=== PATIENT | female | born 1980 | race Two or more races ===

== ENCOUNTER 2018-02-14 02:23 | Emergency (ER) | payer OTHER ==
[~2018-02-14] VITALS: Ht 160 cm; Wt 99.8 kg
[~2018-02-14 02:23] MED LIST: HYDR-569 PO; LOPE1TAB46 PO; ONDA4TAB6 PO
[2018-02-14] MEDS ORDERED: GUAI120L55 PO (02:57)
[2018-02-14] MEDS ORDERED: AZIT-63 PO (02:57)
[2018-02-14] MEDS ORDERED: guaiFENesin/codeine phos 10ml UD oral syrup PO ONE (03:20)
[2018-02-14 03:24] VITALS: BP 138/101
== END 2018-02-14 03:27 | disposition home or self-care (01) ==
LOC: ER 02:23
DX: J02.9 Acute pharyngitis, unspecified (principal); M54.2 Cervicalgia; G43.909 Migraine, unspecified, not intractable, without status migrainosus; K21.9 Gastro-esophageal reflux disease without esophagitis; Z79.899 Other long term (current) drug therapy
CPT/HCPCS: 99283

== ENCOUNTER 2018-12-05 15:32 | Emergency (ER) | payer OTHER ==
[~2018-12-05 15:32] MED LIST changes: +GUAI120L55 PO; +HYDR-4383 PO; -HYDR-569 PO
--- NOTE | 2018-12-05 16:46 | NUR ---
PT CALLED X3 TO TRIAGE, NIL, FARM TECHNICIAN NOTIFIED
[2018-12-06] MEDS ORDERED: HYDR-4353 PO (10:23)
[2018-12-06] MEDS ORDERED: ONDA8TAB6 PO (10:23)
== END 2018-12-05 17:55 | disposition left against medical advice (07) ==
LOC: ER 15:32
DX: R42 Dizziness and giddiness (principal); Z53.21 Procedure and treatment not carried out due to patient leaving prior to being seen by health care provider; Z79.899 Other long term (current) drug therapy

== ENCOUNTER 2018-12-06 06:10 | Emergency (ER) | payer BC, OTHER ==
[~2018-12-06] VITALS: Ht 160 cm; Wt 93.2 kg
[2018-12-06] MEDS ORDERED: acetaminophen 325mg tablet PO STA (06:42)
[2018-12-06] MEDS ORDERED: ondansetron/PF 4mg/2ml inj IV ONE ×2 (06:45→09:15)
[2018-12-06] MEDS ORDERED: morphine 4 MG/ML inj SYRINge IV PRN (06:45)
[2018-12-06] MEDS ORDERED: ketorolac trometh. 30mg/ml inj. IV ONE (06:45)
[2018-12-06] MEDS ORDERED: normal saline 1000ML IV soln IV ONE (06:45)
[2018-12-06] MEDS ORDERED: CefTRIAXone 2gm/D5W 50ml 50 ML IV ONE (06:45)
[2018-12-06 07:15] LABS: BASOPHILS % (AUTO) 0.2 % (0-1); EOSINOPHILS % (AUTO) 0 % (0-6); HEMATOCRIT 40.9 % (35.0-45.0); HEMOGLOBIN 12.9 g/dl (12.0-16.0); LYMPHOCYTES # (AUTO) 1.5 X10'3 (1.1-4.8); LYMPHOCYTES % (AUTO) 12.6 % (21-51); MEAN CORPUSCULAR HEMOGLOBIN 23.6 PG (27.0-31.0); MEAN CORPUSCULAR HGB CONC 31.4 g/dL (33.0-36.5); MEAN PLATELET VOLUME 8.8 FL (7.4-10.4); MONOCYTES # (AUTO) 1.3 X10'3 (0-0.9); NEUTROPHILS # (AUTO) 9.1 X10'3 (1.8-7.7); NEUTROPHILS % (AUTO) 76.2 % (42-75); PLATELET COUNT 282 X10'3 (140-440); RED BLOOD COUNT 5.45 X10'6 (4.20-5.60); RED CELL DISTRIBUTION WIDTH 13.8 % (11.5-14.5)
[2018-12-06 07:31] LABS: ALANINE AMINOTRANSFERASE 32 U/L (12-78); ALBUMIN 3.2 G/DL (3.4-5.0); ALBUMIN/GLOBULIN RATIO 0.6 (1.1-1.5); ALKALINE PHOSPHATASE 56 IU/L (46-116); ANION GAP 13 (8-16); ASPARTATE AMINO TRANSFERASE 19 U/L (10-37); BILIRUBIN,TOTAL 0.4 MG/DL (0.1-1.0); BLOOD UREA NITROGEN 7 MG/DL (7-18); BUN/CREATININE RATIO 9.6 (6.6-38.0); CALCIUM 8.9 MG/DL (8.5-10.1); CHLORIDE 97 MMOL/L (99-107); CREATININE 0.73 MG/DL (0.40-0.90); GLUCOSE 126 MG/DL (70-104); MAGNESIUM 1.7 MG/DL (1.5-2.4); POTASSIUM 3.2 MMOL/L (3.5-5.1); SODIUM 134 MMOL/L (135-145); TOTAL CARBON DIOXIDE 23.6 MMOL/L (24-32); TOTAL PROTEIN 8.4 G/DL (6.4-8.2); eGFR 89 ML/MIN
[2018-12-06 09:24] LABS: URINE HCG NEGATIVE (NEG)
[2018-12-06 09:32] LABS: COLOR,URINE YELLOW (Yellow); GLUCOSE, URINE NEGATIVE (Neg); KETONES,URINE 40 mg/dl (Neg); LEUKOCYTE ESTERASE ,URINE NEGATIVE (Neg); NITRITES, URINE NEGATIVE (Neg); OCCULT BLOOD,URINE SMALL (Neg); PH,URINE 6.5 (4.8-8.0); PROTEIN,URINE 30 mg/dl (Neg); UROBILINOGEN,URINE 0.2 E.U/dL (0.2-1.0)
[2018-12-06 09:34] LABS: UA COLLECTION TYPE CLN CATCH MIDSTREAM
[2018-12-06 09:37] LABS: CLARITY,URINE SLIGHTLY CLOUDY (Clear)
[2018-12-06 09:38] LABS: BACTERIA,URINE 2+ /HPF (Neg); MUCUS STRANDS MODERATE /LPF (Neg); SQUAMOUS EPITHELIAL CELL,UR MANY /LPF (FEW); WBC,URINE 0-4 /HPF (0-4)
[2018-12-06] MEDS ORDERED: HYDROcodone/acetaminophen 10/325mg tab PO ONE (10:15)
[2018-12-06] MEDS ORDERED: HYDR-4353 PO (10:23)
[2018-12-06] MEDS ORDERED: ONDA8TAB6 PO (10:23)
[2018-12-06 10:25] VITALS: BP 111/59
== END 2018-12-06 10:29 | disposition home or self-care (01) ==
LOC: ER 06:11
DX: B34.9 Viral infection, unspecified (principal); K21.9 Gastro-esophageal reflux disease without esophagitis; Z79.899 Other long term (current) drug therapy
CPT/HCPCS: 36415; 70450; 71045; 80053; 81001; 81025; 83605; 83735; 84145; 85025; 87040; 87077; 87186; 87502; 87503; 96365; 96366; 96375; 96376; 99284; J0696; J1885; J2270; J2405; 93005

== ENCOUNTER 2021-10-10 10:47 | Emergency (ER) | payer BC ==
[~2021-10-10] VITALS: Ht 157.5 cm; Wt 94.1 kg
[~2021-10-10 10:47] MED LIST changes: +ONDA8TAB6 PO
[2021-10-10 10:51] VITALS: BP 164/115
[2021-10-10 11:23] LABS: BASOPHILS # (AUTO) 0.1 X10'3 (0-0.2); BASOPHILS % (AUTO) 0.9 % (0-1); EOSINOPHILS # (AUTO) 0.1 X10'3 (0-0.9); EOSINOPHILS % (AUTO) 1.6 % (0-6); HEMATOCRIT 39.8 % (35.0-45.0); HEMOGLOBIN 12.8 g/dl (12.0-16.0); LYMPHOCYTES # (AUTO) 2.6 X10'3 (1.1-4.8); LYMPHOCYTES % (AUTO) 36.3 % (21-51); MEAN CORPUSCULAR HEMOGLOBIN 23.9 PG (27.0-31.0); MEAN CORPUSCULAR HGB CONC 32.2 g/dL (33.0-36.5); MEAN CORPUSCULAR VOLUME 74.3 FL (78-98); MEAN PLATELET VOLUME 8.6 FL (7.4-10.4); MONOCYTES # (AUTO) 0.5 X10'3 (0-0.9); MONOCYTES % (AUTO) 6.6 % (2-12); NEUTROPHILS % (AUTO) 54.6 % (42-75); PLATELET COUNT 343 X10'3 (140-440); RED BLOOD COUNT 5.36 X10'6 (4.20-5.60); RED CELL DISTRIBUTION WIDTH 14.3 % (11.5-14.5); WHITE BLOOD COUNT 7.3 X10'3 (4.5-11.0)
[2021-10-10 11:38] LABS: ALANINE AMINOTRANSFERASE 26 U/L (12-78); ALBUMIN 3.4 G/DL (3.4-5.0); ALBUMIN/GLOBULIN RATIO 0.7 (1.1-1.5); ALKALINE PHOSPHATASE 79 IU/L (46-116); ANION GAP 9 (8-16); ASPARTATE AMINO TRANSFERASE 15 U/L (10-37); BILIRUBIN,TOTAL 0.3 MG/DL (0.1-1.0); BLOOD UREA NITROGEN 8 MG/DL (7-18); BUN/CREATININE RATIO 14.8 (6.6-38.0); CALCIUM 8.6 MG/DL (8.5-10.1); CHLORIDE 104 MMOL/L (99-107); CREATININE 0.54 MG/DL (0.40-0.90); GLUCOSE 91 MG/DL (70-104); POTASSIUM 3.7 MMOL/L (3.5-5.1); SODIUM 142 MMOL/L (135-145); TOTAL CARBON DIOXIDE 28.8 MMOL/L (24-32); eGFR > 90 ML/MIN
--- NOTE | 2021-10-10 12:00 | NUR ---
pt says has increace in pain with movement
[2021-10-10] MEDS ORDERED: SUCR1ORA12 PO (12:02)
[2021-10-10] MEDS ORDERED: LIDOcaine Viscous 15ml cup MM ONE (12:10)
[2021-10-10] MEDS ORDERED: sucralfate 1gm/10ml UD suspension PO STA (12:10)
[2021-10-10] MEDS ORDERED: mag hydrox/Alum hydrox/simeth 30ml oral suspension PO ONE (12:10)
[2021-10-10] MEDS ORDERED: sucralfate 1 gm tablet PO STA (12:16)
[2021-10-10] MEDS ORDERED: ketorolac trometh. 30mg/ml inj. IM ONE (13:55)
== END 2021-10-10 14:16 | disposition home or self-care (01) ==
LOC: ER 10:47
DX: R07.89 Other chest pain (principal); R07.2 Precordial pain; G43.909 Migraine, unspecified, not intractable, without status migrainosus; K21.9 Gastro-esophageal reflux disease without esophagitis; Z79.899 Other long term (current) drug therapy
CPT/HCPCS: 36415; 71045; 80053; 84484; 85025; 85610; 93005; 96372; 99285; J1885

== ENCOUNTER 2023-12-31 04:53 | Emergency (ER) | payer BC ==
[~2023-12-31] VITALS: Ht 160 cm; Wt 96.4 kg
[~2023-12-31 04:53] MED LIST changes: +SUCR1ORA12 PO
[2023-12-31] MEDS: ondansetron 4mg rapidly disintigrating tab PO ONE (05:35)
[2023-12-31] MEDS: HYDROcodone/acetaminophen 10/325mg tab PO ONE (05:35)
[2023-12-31] MEDS: predniSONE 20 mg tablet PO ONE (05:51)
[2023-12-31 05:52] LABS: BASOPHILS % (AUTO) 0.1 % (0-1); EOSINOPHILS % (AUTO) 0.1 % (0-6); HEMATOCRIT 39.7 % (35.0-45.0); HEMOGLOBIN 12.7 g/dl (12.0-16.0); LYMPHOCYTES # (AUTO) 1.1 X10'3 (1.1-4.8); LYMPHOCYTES % (AUTO) 5.2 % (21-51); MEAN CORPUSCULAR HEMOGLOBIN 23.9 PG (27.0-31.0); MEAN CORPUSCULAR HGB CONC 32.1 g/dL (33.0-36.5); MEAN CORPUSCULAR VOLUME 74.5 FL (78-98); MEAN PLATELET VOLUME 8.6 FL (7.4-10.4); MONOCYTES # (AUTO) 0.9 X10'3 (0-0.9); MONOCYTES % (AUTO) 4.3 % (2-12); NEUTROPHILS # (AUTO) 18.5 X10'3 (1.8-7.7); NEUTROPHILS % (AUTO) 90.3 % (42-75); PLATELET COUNT 323 X10'3 (140-440); RED BLOOD COUNT 5.33 X10'6 (4.20-5.60); RED CELL DISTRIBUTION WIDTH 14.4 % (11.5-14.5); WHITE BLOOD COUNT 20.5 X10'3 (4.5-11.0)
[2023-12-31 05:57] LABS: ALANINE AMINOTRANSFERASE 24 U/L (12-78); ALBUMIN 3.1 G/DL (3.4-5.0); ALBUMIN/GLOBULIN RATIO 0.7 (1.1-1.5); ALKALINE PHOSPHATASE 74 IU/L (46-116); ANION GAP 12 (8-16); ASPARTATE AMINO TRANSFERASE 15 U/L (10-37); BILIRUBIN,TOTAL 0.5 MG/DL (0.1-1.0); BLOOD UREA NITROGEN 10 MG/DL (7-18); BUN/CREATININE RATIO 12.7 (10.0-20.0); CALCIUM 8.7 MG/DL (8.5-10.1); CHLORIDE 102 MMOL/L (99-107); CREATININE 0.79 MG/DL (0.40-0.90); GLUCOSE 142 MG/DL (70-104); LIPASE 32 U/L (16-77); POTASSIUM 3.7 MMOL/L (3.5-5.1); SODIUM 137 MMOL/L (135-145); TOTAL CARBON DIOXIDE 22.9 MMOL/L (24-32); TOTAL PROTEIN 7.6 G/DL (6.4-8.2); eCRCL 75 ML/MIN; eGFR 79 ML/MIN
[2023-12-31 07:21] LABS: URINE HCG NEGATIVE (NEG)
[2023-12-31 07:23] LABS: BILIRUBIN,URINE NEGATIVE (Neg); CLARITY,URINE CLOUDY (Clear); COLOR,URINE YELLOW (Yellow); GLUCOSE, URINE NEGATIVE (Neg); KETONES,URINE NEGATIVE (Neg); LEUKOCYTE ESTERASE ,URINE NEGATIVE (Neg); NITRITES, URINE NEGATIVE (Neg); OCCULT BLOOD,URINE LARGE (Neg); PROTEIN,URINE TRACE mg/dl (Neg); UROBILINOGEN,URINE 0.2 E.U/dL (0.2-1.0)
[2023-12-31 07:30] LABS: UA COLLECTION TYPE CLN CATCH MIDSTREAM
[2023-12-31] MEDS: ondansetron/PF 4mg/2ml inj IV STA (07:31)
[2023-12-31 07:32] LABS: SQUAMOUS EPITHELIAL CELL,UR MANY /LPF (FEW)
[2023-12-31 07:33] LABS: RBC,URINE TNTC /HPF (0-2)
[2023-12-31 07:34] LABS: HCG SERUM QL NEGATIVE
[2023-12-31 07:35] VITALS: TEMP 97.7
[2023-12-31 07:35] LABS: BACTERIA,URINE FEW /HPF (Neg)
[2023-12-31 07:38] LABS: MUCUS STRANDS FEW /LPF (Neg)
[2023-12-31] MEDS ORDERED: CEPH250T PO (09:03)
[2023-12-31] MEDS: CefTRIAXone/D5W-Rocephin 1gm 50 ML IV ONE (09:19)
[2023-12-31 10:15] VITALS: BP 140/87; PULSE 108; RESP 18; O2SAT 97
== END 2023-12-31 10:17 | disposition home or self-care (01) ==
LOC: ER 04:54
DX: N39.0 Urinary tract infection, site not specified (principal); G43.909 Migraine, unspecified, not intractable, without status migrainosus; Z88.2 Allergy status to sulfonamides; Z88.8 Allergy status to other drugs, medicaments and biological substances; Z79.899 Other long term (current) drug therapy; Z79.2 Long term (current) use of antibiotics
CPT/HCPCS: 36415; 74176; 80053; 81001; 81025; 83690; 84145; 84703; 85025; 96365; 96375; 99285; J0696; J2405; J7512